=== PATIENT | male | born 1985 | race Caucasian/White ===

== ENCOUNTER 2024-11-30 16:16 | Emergency (ER) | payer OTHER, SELFPAY ==
--- NOTE | ~2024-11-30 | XR_ITS ---
EXAMINATION: XR chest 2V Exam Date/Time: 11/30/2024 16:34 SWIMMING COACH HISTORY: cough, fever Comparison: 11/05/2016. RESULT: Lines, tubes, and devices: Loop recorder. Lungs and pleura: Low volume with crowding in the lateral view. Lungs otherwise clear. Cardiomediastinal silhouette: Stable. Other: No acute osseous or upper abdominal finding. IMPRESSION: No acute cardiopulmonary process. Reviewed, dictated and finalized at location [facility]
--- NOTE | 2024-11-30 16:17 | ED.URI ---
HPI - URI/Sore Throat General Chief Complaint: Upper Respiratory Infection Stated Complaint: COUGH/FEVER Source: patient and RN notes reviewed Mode of arrival: ambulatory Limitations: no limitations History of Present Illness HPI Narrative: Patient is a 39-year-old male who presents to the [facility] with complaints of cough, fever, and body aches that has been ongoing over the weekend, worsening yesterday. He states that he has had a cough for over 100 days. He states that it is frequently nonproductive but occasionally productive with clear sputum. He denies chest pain or shortness of breath. Reports mild intermittent headache. Denies sore throat. Patient states that both of his parents have been recently diagnosed with influenza. He denies abdominal pain, nausea, vomiting, diarrhea. He does not appear in any acute distress. Related Data Home Medications ?Medication ?Instructions ?Recorded ?Confirmed ?Last Taken ?Type armodafinil 250 mg tablet mg PO 11/30/24 Unknown History azelastine 137 mcg (0.1 %) nasal intranasal 11/30/24 Unknown History spray cyclobenzaprine 10 mg tablet mg 11/30/24 Unknown History fluconazole 100 mg tablet mg 11/30/24 Unknown History fluticasone propionate 50 intranasal 11/30/24 Unknown History mcg/actuation nasal spray,suspension omeprazole 40 mg capsule,delayed mg 11/30/24 Unknown History release Allergies Allergy/AdvReac Type Severity Reaction Status Date / Time erythromycin base Allergy Unknown Rash Verified 11/30/24 16:41 sulfisoxazole Allergy Unknown Rash Verified 11/30/24 16:41 ERYTHROMYCIN ETHYLSUCCINATE Allergy Intermediate PT DIDN'T Uncoded 11/30/24 16:41 KNOW FOR SURE THOUGHT MAYBE A RASH SULFISOXAZOLE ACETYL Allergy Intermediate PT DIDN'T Uncoded 11/30/24 16:41 KNOW FOR SURE THOUGHT MAYBE A RASH NA Allergy Mild Rash Uncoded 11/30/24 16:41 Review of Systems Review of Systems: CONSTITUTIONAL: Reports fever, chills, and sweats. EYES: Denies visual changes, redness, or discharge. ENT: Denies otalgia and sore throat. Reports congestion. CARDIOVASCULAR: Denies chest pain, palpitations, or edema. RESPIRATORY: Reports cough but denies dyspnea. GASTROINTESTINAL: Denies abdominal pain, nausea, vomiting, or diarrhea. GENITOURINARY: Denies dysuria or hematuria. SKIN: Denies rash or itching. MUSCULOSKELETAL: Denies back pain, joint pain, but reports myalgia. NEUROLOGIC: Reports headache but denies numbness or weakness. Pertinent positives per HPI. PMFSH Family History Family History Grandparent Hypertension Family history of heart disease in male family member before age 55 Diabetes mellitus Mother Family history of diabetes mellitus in first degree relative Other Cerebrovascular accident Family history of Hodgkin's lymphoma Family history of alcoholism Family history of arthritis Family history of genetic disorder Family history of mental disorder Social History Social History Smoking status: Never smoker Alcohol intake: current Comments At the time of my signature, I reviewed and agree with the nursing past medical, surgical, social, and family history. There is no relevant family history pertinent to the patient complaint. Exam Narrative: GENERAL: This is a well-nourished, well-developed patient, in no apparent distress. HEAD: normocephalic, atraumatic. EYES: Sclera clear/white. Vision is grossly intact. EARS: External ears normal. Hearing grossly intact. NOSE: External nose normal with positive congestion. THROAT: Mucous membranes moist, posterior pharynx clear. NECK: Neck supple, non-tender without lymphadenopathy, masses or thyromegaly. CARDIOVASCULAR: Regular rate and rhythm without murmurs, gallops, or rubs. RESPIRATORY: Clear to auscultation. Breath sounds equal bilaterally. No wheezes, rales, or rhonchi. GASTROINTESTINAL: Abdomen soft, non-tender, nondistended. Bowel sounds are active. No hepato-splenomegaly, or palpable masses. No guarding. SKIN: warm, intact with no suspicious lesions or rash, good texture and turgor. NEURO: awake, alert, and oriented to person, place and time. There were no obvious focal neurologic abnormalities. Course Course Level of Care: Express Care Visit Vital Signs Vital signs: Vital Signs Temperature 98.6 F 11/30/24 16:36 Pulse Rate 109 H 11/30/24 16:36 Respiratory Rate 16 11/30/24 16:36 Blood Pressure 120/82 11/30/24 16:36 Pulse Oximetry 98 11/30/24 16:36 Temperature 98.6 F 11/30/24 16:36 Pulse Rate 109 H 11/30/24 16:36 Respiratory Rate 16 11/30/24 16:36 Blood Pressure 120/82 11/30/24 16:36 Pulse Oximetry 98 11/30/24 16:36 Reviewed MDM - URI/Sore Throat MDM Narrative Medical decision making narrative: Take steroids as directed. May use the inhaler every 4-6 hours as needed for coughing. Increase fluids at home. Avoid any and all smoke. May use a humidifier in the bedroom. Increase your Vitamin C. Follow-up with personal physician in 2-5 days. Differential Diagnosis Differential diagnosis: Likely upper respiratory infection, viral infection, bronchitis, influenza and other (covid, pneumonia) Lab Data Attestation: I reviewed the patient's lab results. Imaging Data Attestation: I personally reviewed and interpreted this imaging study as follows: Radiologist's impression: Close Chest X-Ray (Signed) Brendan Borjas - 11/30/24 Launch?[facility] [address] [place] [address] XRay Report Signed Patient: Saulo Encarnacion : 1985 MR#: [id number] Age: 39 Acct:[id number] Loc: [id number] ADM Date: 11/30/24Attending Dr: Ordering Physician: Mandi Fish APRN Date of Service: 11/30/24 Procedure(s): XR chest 2V Accession Number(s): [id number] cc: Mandi Fish APRN; Jenna,Shen~ EXAMINATION: XR chest 2V Exam Date/Time: 11/30/2024 16:34 SUPPORT ASSISTANT HISTORY: cough, fever Comparison: 11/05/2016. RESULT: Lines, tubes, and devices: Loop recorder. Lungs and pleura: Low volume with crowding in the lateral view. Lungs otherwise clear. Cardiomediastinal silhouette: Stable. Other: No acute osseous or upper abdominal finding. IMPRESSION: No acute cardiopulmonary process. [facility] signed by Brendan Borjas M.D. on 11/30/2024 16:50 SUPPORT ASSISTANT Please be advised this is a medical document. It is intended for [id number] communication. It is written in medical language and may contain unfamiliar abbreviations or verbiage. Medical documents are intended to carry relevant information, facts as evident, and the clinical opinion of the practitioner at the time of the encounter. This report may have been done utilizing a voice recognition system. Attempts have been made to correct errors. However, there may be uncorrected grammatical, spelling, and recognition errors present. The file time of this note does not necessarily represent the time of service. Dictated By: Brendan Borjas MD 11/30/24 1649 Signed By: <Electronically signed by Brendan Borjas MD in [place]> 11/30/24 1650 Discharge Plan Discharge Clinical Impression: Acute viral bronchitis Patient Disposition: Home, Self-Care Condition: Stable Instructions: Acute Bronchitis (ED) Additional Instructions: Take steroids as directed. May use the inhaler every 4-6 hours as needed for coughing. Increase fluids at home. Avoid any and all smoke. May use a humidifier in the bedroom. Increase your Vitamin C. Follow-up with personal physician in 2-5 days. Patient Language: Turkmen Prescriptions: New prednisone 50 mg tablet 50 mg PO DAILY 5 Days Qty: 5 0RF albuterol sulfate [Ventolin HFA] 90 mcg/actuation HFA aerosol inhaler 2 puff inhalation QID PRN (Reason: shortness of breath or wheezing) Qty: 8.5 0RF No Action cyclobenzaprine 10 mg tablet fluconazole 100 mg tablet omeprazole 40 mg capsule,delayed release(DR/EC) azelastine 137 mcg (0.1 %) spray,non-aerosol INTRANASAL fluticasone propionate 50 mcg/actuation spray,suspension INTRANASAL armodafinil 250 mg tablet PO Follow-up/Referrals: UNKNOWN,DOCTOR [Non-Staff] - Stand Alone Forms: Work/School Release IP Time of Disposition: 16:59
[2024-11-30 16:36] VITALS: BP 120/82; PULSE 109; RESP 16; TEMP 37; O2SAT 98
[2024-11-30 16:59] LABS: EDCOVIDSCREEN Negative (Negative); EDINFLUASCREEN Negative (Negative); EDINFLUBSCREEN Negative (Negative)
== END 2024-11-30 17:01 | disposition home or self-care (01) ==
PROVIDERS: Emergency Provider Nurse Practitioner
DX: J20.8 Acute bronchitis due to other specified organisms (principal); Z20.822 Contact with and (suspected) exposure to COVID-19
CPT/HCPCS: 71046; 87426; 87804; 99213; G0463